=== PATIENT | male | born 1940 | race Caucasian/White ===

== ENCOUNTER → 2020-06-15 | Day surgery (SDC) | payer MEDICARE, BC ==
[~2020-06-15] MED LIST: Glycopyrrolate 0.2 MG/ML SDV IVPUSH ONE; Ketamine 200 MG/20 ML MDV IV ONE; Lactated Ringers 1,000 ML IV SCH; Propofol 200 MG/20 ML SDV IV ONE
[2020-06-15 10:35] VITALS: BP 138/50; PULSE 62
--- NOTE | 2020-06-15 14:23 | OR ---
DATE OF OPERATION: 06/15/2020 PREOPERATIVE DIAGNOSIS: HISTORY OF POLYPS. POSTOPERATIVE DIAGNOSIS: HISTORY OF POLYPS. SURGEON: Rafael Lux MD PROCEDURE: DIAGNOSTIC COLONOSCOPY. ANESTHESIA: MAC. COMPLICATIONS: None. SPECIMEN: None. FINDINGS: 1. Full-length colonoscopy. 2. Minimal sigmoid diverticulosis. RECOMMENDATIONS: Followup colonoscopy on a p.r.n. basis only at this point. INDICATIONS: The patient had a polyp removed 5 years ago. He is in for a surveillance scope. DESCRIPTION OF PROCEDURE: The patient was prepped and draped, placed in the left lateral decubitus position. A lubricated Olympus colonoscope was inserted and with ease advanced to the cecum. Direct visualization of the ileocecal valve and appendiceal orifice was accomplished. The bowel prep was adequate. Upon withdrawal of the scope, throughout the entire length of the colon, I could find no signs of any polyps, masses, ulceration, or bleeding sites. No vascular abnormalities or signs of colitis. The patient does have a few diverticula in the sigmoid but very minimal in any severity. The rectal vault was benign. Retroflexion showed some perianal hemorrhoid disease, otherwise benign. Air was suctioned. Scope removed without complication. ALISA/ORDNEY /[id number]
== END ==
LOC: CC.SDS 08:46
PROVIDERS: ATTEND Family Medicine
DX: Z12.11 Encounter for screening for malignant neoplasm of colon (principal); K57.30 Diverticulosis of large intestine without perforation or abscess without bleeding; K64.8 Other hemorrhoids; I10 Essential (primary) hypertension; I48.91 Unspecified atrial fibrillation; K21.9 Gastro-esophageal reflux disease without esophagitis; E78.5 Hyperlipidemia, unspecified; I34.0 Nonrheumatic mitral (valve) insufficiency; C61 Malignant neoplasm of prostate; E55.9 Vitamin D deficiency, unspecified; Z79.82 Long term (current) use of aspirin; Z79.899 Other long term (current) drug therapy; Z87.891 Personal history of nicotine dependence; Z87.2 Personal history of diseases of the skin and subcutaneous tissue; Z86.010 Personal history of colon polyps; Z98.890 Other specified postprocedural states
CPT/HCPCS: J2704; J3490; J7120